=== PATIENT | male | born 1990 | race Caucasian/White ===

== ENCOUNTER → 2021-09-09 11:20 | Outpatient (CLI) | payer OTHER, SELFPAY ==
--- NOTE | ~2021-09-09 | CT_ITS ---
EXAMINATION: CT abdomen pelvis w con DATE: 09/09/2021 11:50 INDICATION: Right lower quadrant pain TECHNIQUE: Computed tomography (CT) of the abdomen and pelvis was performed with 100 cc Omnipaque 350 intravenous contrast. The dose-length product was 1161.39 mGy-cm. Automated exposure control and ite rative reconstruction technique were employed. COMPARISON: No prior studies for comparison. . FINDINGS: Lung bases are unremarkable. Heart size normal. 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 Fatty infiltration of the liver. The spleen, pancreas, adrenal glands and kidneys are unremarkable. No significant vascular abnormality. No lymphadenopathy. There is a thickened enhancing appendix measuring 1.3 cm transversely, consistent with acute appendi citis. No evidence for perforation or abscess. IMPRESSION: 1. Acute uncomplicated appendicitis. Reviewed, dictated and finalized at location B.
[2021-09-09 11:43] LABS: Estimated Glomerular Filt Rate > 60
== END ==
PROVIDERS: PCP Physician Assistant; Visit Provider Physician Assistant
DX: R10.31 Right lower quadrant pain (principal); K35.80 Unspecified acute appendicitis
CPT/HCPCS: 74177; Q9967

== ENCOUNTER 2021-09-10 13:46 | Day surgery (SDC) | payer OTHER, SELFPAY ==
[2021-09-10] VITALS (11 sets, daily range): BP systolic 118–144; BP diastolic 62–83; PULSE 65–86; RESP 10–116; TEMP 36.4; O2SAT 98–100
--- NOTE | 2021-09-10 13:50 | ED.ABDPAIN ---
HPI - Abdominal Pain General Chief Complaint: Abdominal Pain Stated Complaint: abdominal pain Time Seen by Provider: 09/10/21 13:50 Source: patient Limitations: no limitations History of Present Illness HPI narrative: patient 30 years old white male presents with abdominal pain, started around the umbilicus 3 days ago, later went to the right lower quadrant associated with nausea and vomiting. CAT scan of the abdomen and pelvis with IV contrast today showed acute uncommonly appendicitis. Patient referred to our emergency room by his family physician. History of hypertension on lisinopril, patient does not smoke, drinks occasionally, does not use drugs. Patient denies any fever or chills. Related Data Home Medications Medication Instructions Recorded Confirmed lisinopril 09/10/21 Allergies Allergy/AdvReac Type Severity Reaction Status Date / Time No Known Allergies Allergy Verified 09/10/21 14:11 Review of Systems Review of Systems: CONSTITUTIONAL: Denies fever, chills, or sweats. EYES: Denies visual changes, redness, or discharge. ENT: Denies rhinorrhea, congestion, sore throat, or otalgia. CARDIOVASCULAR: Denies chest pain, palpitations, or edema. RESPIRATORY: Denies cough or dyspnea. GASTROINTESTINAL: Denies abdominal pain, nausea, vomiting, or diarrhea. GENITOURINARY: Denies dysuria or hematuria. SKIN: Denies rash or itching. MUSCULOSKELETAL: Denies back pain, joint pain, or myalgia. NEUROLOGIC: Denies headache, numbness, or weakness. PSYCHIATRIC: Denies anxiety or depression. PMFSH Past Medical History Medical History (Updated 09/10/21 @ 17:16 by Jan Casas MD) HTN (hypertension) Overweight (BMI 25.0-29.9) Exam Narrative: General appearance: Well-developed, well-nourished Skin: Normal color Head: Normocephalic, nontraumatic Eyes: Clear conjunctiva ENT: Oropharynx normal, ears normal, nose normal Neck: Supple, nontender Chest and respiratory: Airway patent, no respiratory distress, no accessory muscle use Heart: Regular rate/rhythm Abdomen: Soft, moderate tenderness right lower quadrant, slight guarding, no rebound, no organomegaly, quiet bowel sounds Vascular: Normal peripheral pulses, normal capillary refill. Musculoskeletal: Normal range of motion, nontender back Neurologic: Alert and oriented ?3, SECOND HAND is normal as tested, no gross motor deficit Course Course Emergency Course: Stable Vital Signs Vital signs: Vital Signs Temperature 36.4 C 09/10/21 14:11 Pulse Rate 83 09/10/21 14:11 Respiratory Rate 16 09/10/21 14:11 Blood Pressure 136/82 09/10/21 14:11 Pulse Oximetry 98 09/10/21 14:11 Temperature 36.4 C 09/10/21 16:00 Pulse Rate 84 09/10/21 17:01 Respiratory Rate 16 09/10/21 17:01 Blood Pressure 124/70 09/10/21 17:01 Pulse Oximetry 98 09/10/21 16:00 MDM - Abdominal Pain Differential Diagnosis Differential diagnosis: Likely acute appendicitis Lab Data Result diagrams: 09/10/21 14:06 09/10/21 14:06 Labs: Lab Results 09/10/21 09/10/21 09/10/21 Range/Units 14:06 14:06 14:06 WBC 7.7 (4.5-10.0) K/mm3 RBC 5.57 (4.6-6.20) M/mm3 Hgb 16.8 (14.0-18.0) g/dL Hct 49.0 (42.0-52.0) % MCV 88.0 (80-100) fl MCH 30.2 (26-34) pg MCHC 34.3 (32-36) g/dl RDW 11.9 (11.5-14.5) % Plt Count 218 (150-375) k/mm3 MPV 9.5 (7.4-10.4) fl Immature Gran % (Auto) 0.1 (0-0.5) % Neut % (Auto) 53.8 (45.5-73.1) % Lymph % (Auto) 33.8 (18.3-44.2) % [place] % (Auto) 10.3 H (2.6-8.5) % Eos % (Auto) 1.6 (0-4.4) % Baso % (Auto) 0.4 (0.2-1.2) % Lymph # (Auto) 2.59 (0.9-3.2) K/mm3 Mon
[2021-09-10 14:18] LABS: Basophils Percent Auto 0.4 % (0.2-1.2); Eosinophils Absolute Auto 0.1 K/mm3 (0-0.3); Eosinophils Percent Auto 1.6 % (0-4.4); Hemoglobin 16.8 g/dL (14.0-18.0); Immature Granulocyte Absolute 0.01 K/mm3 (0.00-0.031); Immature Granulocyte Percent A 0.1 % (0-0.5); Lymphocytes Absolute Auto 2.59 K/mm3 (0.9-3.2); Lymphocytes Percent Auto 33.8 % (18.3-44.2); Mean Corpuscular HGB Conc 34.3 g/dl (32-36); Mean Corpuscular Hemoglobin 30.2 pg (26-34); Mean Platelet Volume 9.5 fl (7.4-10.4); Monocytes Absolute Auto 0.8 K/mm3 (0.1-0.6); Monocytes Percent Auto 10.3 % (2.6-8.5); Neutrophils Absolute Auto 4.1 K/mm3 (1.3-6.7); Neutrophils Percent Auto 53.8 % (45.5-73.1); Platelet Count Result 218 k/mm3 (150-375); Red Blood Count 5.57 M/mm3 (4.6-6.20); Red Cell Distribution Width 11.9 % (11.5-14.5); White Blood Count 7.7 K/mm3 (4.5-10.0)
[2021-09-10 14:20] LABS: Add Urine Microscopic? NO; Appearance Urine Clear (Clear); Bilirubin Urine Negative (Negative); Blood Urine Negative (Negative); Color Urine Yellow (Yellow); Glucose Urine UA Negative (Negative); Ketones Urine Negative (Negative); Leukocyte Esterase Ur Negative LEU/UL (Negative); Nitrate Urine Negative (Negative); Protein Urine Negative (Negative); Specific Grav Ur 1.025 (1.001-1.035); Urobilinogen Urine Negative mg/dL (<2.0)
[2021-09-10 14:30] LABS: Alanine Aminotransferase 35 U/L (4-50); Albumin Level 4.9 g/dL (3.5-5.1); Alkaline Phosphatase 63 U/L (38-126); Anion Gap 7 mmol/L (8-16); Aspartate Amino Transferase 29 U/L (17-59); Bilirubin,Total 1.3 mg/dL (0.2-1.3); Blood Urea Nitrogen 17 mg/dL (9-20); Calcium 9.6 mg/dL (8.4-10.2); Carbon Dioxide 26 mmol/L (22-30); Chloride 102 mmol/L (98-107); Estimated CRCL calculation 125 ml/min; Estimated Glomerular Filt Rate > 60; Glucose 107 mg/dL (65-110); Lipase 49 U/L (23-300); Potassium 4.2 mmol/L (3.4-5.0); Sodium 135 mmol/L (137-145)
[2021-09-10] MEDS: SODIUM CHLORIDE 0.9% IV 1,000 ML 999 ML IV CONT (14:49)
--- NOTE | 2021-09-10 17:12 | PM.IMHP ---
H&P: HPI History of Present Illness Date/Time: 09/10/21 17:12 Chief Complaint: Right lower quadrant abdominal pain Narrative: The patient is a 30 year old white male who presents with abdominal pain. It started around the umbilicus 3 days ago, and later went to the right lower quadrant associated with nausea and vomiting. Patient states that he saw his PCP, José Miguel Deras yesterday and a CT scan of the abdomen pelvis was ordered which was done yesterday at noon. This was read at [place] as acute uncomplicated appendicitis without signs of perforation. Today in the emergency room he had a workup including labs which show a normal white count and unremarkable electrolytes. Patient was referred to our emergency room by his family physician. Early in the day we had heard from the office that they were trying to refer him as an outpatient. However, one of our physicians reviewed the CT and since it showed acute uncomplicated appendicitis he recommended the patient come to the emergency room if you want care and not wait until the appropriate or available time which was next week. History of hypertension on lisinopril, patient does not smoke, drinks occasionally, does not use drugs. Patient denies any fever or chills actually is in not too much pain right now. Review of Systems Review of Systems: All systems reviewed & are unremarkable except as noted in HPI and below (HPI) Constitutional: Constitutional: Reports as per HPI, Denies chills and Denies fever(s) Eyes: Eyes: Reports no additional eye complaints ENT: Reports Normal hearing present and Denies dizziness Cardiovascular: Cardiovascular: Reports no additional cardiovascular complaints, Denies chest pain and Denies irregular heart rhythm Comments: History of hypertension on lisinopril. Respiratory: Respiratory: Reports no additional respiratory complaints Gastrointestinal: Gastrointestinal: Reports as per HPI, Denies constipation, Denies loose stools, Reports nausea and Reports vomiting (Several times yesterday) Genitourinary: Genitourinary: Denies hematuria Musculoskeletal: Musculoskeletal: Denies back pain Integumentary/Breasts: Skin/Breast: Reports system reviewed and no additional complaints, except as docu Neurologic: Reports Normal hearing present, Denies Abnormal speech present, Denies confusion and Denies dizziness Psychiatric: Psychiatric: Reports no additional psychiatric complaints and Denies confusion Endocrine: Endocrine: Reports no additional endocrine complaints Hematologic/Lymphatic: Hematologic/Lymphatic: Denies easy bleeding and Denies easy bruising Allergic/Immunologic: Allergic/Immunologic: Reports no additional allergic/immunologic complaints [facility] Past Medical History Medical History (Updated 09/10/21 @ 17:20 by Yaakov Rivera MD) HTN (hypertension) Overweight (BMI 25.0-29.9) Meds Home Medications and Allergies Home Medications Medication Instructions Recorded Confirmed Type hydrocodone-acetaminophen 1 tablet PO Q6H PRN #14 tablet 09/10/21 Rx lisinopril 09/10/21 History Allergies Allergy/AdvReac Type Severity Reaction Status Date / Time No Known Allergies Allergy Verified 09/10/21 14:11 Vital Signs Vital Signs - 24 hr 09/10/21 14:11 09/10/21 15:22 09/10/21 16:00 Temperature 36.4 C 36.4 C Pulse Rate 83 86 84 Respiratory Rate 16 16 116 H Blood Pressure 136/82 120/74 118/67 Pulse Oximetry 98 98 98 09/10/21 17:01 Temperature Pulse Rate 84 Respiratory Rate 16 Blood Pressure 124/70 Pulse Oximetry Exam Const: General: cooperative, healthy appearing, comfortable, no acute distress, well developed, alert and awake; No confusion Nutritional Appearance: overweight Orientation/consciousness: patient oriented x3 and No confusion HENMT: Head: normal to inspection Ears: hearing grossly normal bilaterally Mouth: Yes moist mucous membranes Teeth and gingiva: dentition normal Eyes: General: appearance
--- NOTE | 2021-09-10 17:14 | WPDANESEPPF ---
Anes - Initial Pre Proc Eval Procedure: Operation Date: 09/10/21 18:00 Proposed Procedures p Laparoscopic Appendectomy - Yaakov Rivera MD Date/Time: 09/10/21 17:14 Pre Op Diagnosis: abdominal pain Patient Data Age: 30 Gender: M Height: 1.91 m Weight: 104.54 kg Last Vital Signs Temp 36.4 C 09/10/21 16:00 Pulse 84 09/10/21 17:01 Resp 16 09/10/21 17:01 BP 124/70 09/10/21 17:01 Pulse Ox 98 09/10/21 16:00 Allergies Allergy/AdvReac Type Severity Reaction Status Date / Time No Known Allergies Allergy Verified 09/10/21 14:11 Home Medications Medication Instructions Recorded Confirmed Type lisinopril 09/10/21 History Laboratory Tests 09/10/21 09/10/21 09/10/21 14:06 14:06 14:06 WBC 7.7 K/mm3 K/mm3 (4.5-10.0) RBC 5.57 M/mm3 M/mm3 (4.6-6.20) Hgb 16.8 g/dL g/dL (14.0-18.0) Hct 49.0 % % (42.0-52.0) MCV 88.0 fl fl (80-100) MCH 30.2 pg pg (26-34) MCHC 34.3 g/dl g/dl (32-36) RDW 11.9 % % (11.5-14.5) Plt Count 218 k/mm3 k/mm3 (150-375) MPV 9.5 fl fl (7.4-10.4) Immature Gran % (Auto) 0.1 % % (0-0.5) Neut % (Auto) 53.8 % % (45.5-73.1) Lymph % (Auto) 33.8 % % (18.3-44.2) [place] % (Auto) 10.3 % H % (2.6-8.5) Eos % (Auto) 1.6 % % (0-4.4) Baso % (Auto) 0.4 % % (0.2-1.2) Lymph # (Auto) 2.59 K/mm3 K/mm3 (0.9-3.2) [place] # (Auto) 0.8 K/mm3 H K/mm3 (0.1-0.6) Eos # (Auto) 0.1 K/mm3 K/mm3 (0-0.3) Baso # (Auto) 0.0 K/mm3 K/mm3 (0.0-0.1) Abs Immat Gran (auto) 0.01 K/mm3 K/mm3 (0.00-0.031) Absolute Neuts (auto) 4.1 K/mm3 K/mm3 (1.3-6.7) Absolute Nucleated RBC 0.0 K/mm3 K/mm3 (0.0-0.012) Nucleated RBC % 0.0 % % (0.0-0.2) Sodium 135 mmol/L L mmol/L (137-145) Potassium 4.2 mmol/L mmol/L (3.4-5.0) Chloride 102 mmol/L mmol/L (98-107) Carbon Dioxide 26 mmol/L mmol/L (22-30) Anion Gap 7 mmol/L L mmol/L (8-16) BUN 17 mg/dL mg/dL (9-20) Creatinine 0.90 mg/dL mg/dL (0.7-1.3) Estim Creat Clear Calc 125 ml/min ml/min Estimated GFR > 60 (59 - ) Glucose 107 mg/dL mg/dL (65-110) Calcium 9.6 mg/dL mg/dL (8.4-10.2) Total Bilirubin 1.3 mg/dL mg/dL (0.2-1.3) AST 29 U/L U/L (17-59) ALT 35 U/L U/L (4-50) Alkaline Phosphatase 63 U/L U/L (38-126) Total Protein 8.0 g/dL g/dL (6.3-8.2) Albumin 4.9 g/dL g/dL (3.5-5.1) Lipase 49 U/L U/L (23-300) Urine Color Yellow (Yellow) Urine Appearance Clear (Clear) Urine pH 5.0 (5.0-9.0) Ur Specific [place] 1.025 (1.001-1.035) Urine Protein Negative mg/dL mg/dL (Negative) Urine Glucose (UA) Negative mg/dL mg/dL (Negative) Urine Ketones Negative mg/dL mg/dL (Negative) Ur Blood (Man) Negative (Negative) Urine Nitrate Negative (Negative) Urine Bilirubin Negative (Negative) Urine Urobilinogen Negative mg/dL mg/dL (<2.0) Leukocyte Esterase Rfl Negative NATHALY/UL NATHALY/UL (Negative) Patient hx anesthesia problems: none Family hx anesthesia problems: none Results Review: All pre-operative results and documents have been reviewed as part of the pre-operative evaluation. [facility] Past Medical History Medical History (Updated 09/10/21 @ 17:16 by Jan Casas MD) HTN (hypertension) Overweight (BMI 25.0-29.9) Anes - Eval Final PreProcedure Day of Procedure 09/10/21 17:14 Patient weight: overweight Heart: regular rate and rhythm Lungs: clear to auscultation and normal air movement Airway: Mallampati scale class II Neurological: alert and oriented
[2021-09-10] MEDS: LACTATED RINGERS 1,000 ML 30 ML IV CONT ×2 (17:24→18:50)
--- NOTE | 2021-09-10 17:51 | WPDHPUPDATE1 ---
History and Physical Update Update Date/Time: 09/10/21 17:51 History and Physical has been reviewed, including an updated exam of the patient. There are NO changes in the patient's condition. Risks, benefits, and alternatives have been discussed and questions answered. Patient agrees to proceed with procedure.
[2021-09-10] MEDS: BUPIVACAINE/EPINEPHRINE 0.25% 50 ML VIAL 30 ML INFILTRATE (18:39)
--- NOTE | 2021-09-10 18:49 | W.PM.PROC2 ---
Procedure Note - Detailed Date of Procedure 09/10/21 Pre-op Diagnosis Acute uncomplicated appendicitis Post-op Diagnosis Same (2. Small indirect right inguinal hernia) Procedure Performed laparoscopic appendectomy Surgeon Yaakov Rivera MD [employer] KIM. [employer] Anesthesia General Indications Patient is a 30-year-old white male who recently presented to his PCP with complaints of 1-2 days of lower abdominal pain. CT scan done as an outpatient revealed acute uncomplicated appendicitis. Patient continued to have symptoms and therefore presented to the emergency room today. After a thorough discussion of his options he wished to proceed with a laparoscopic appendectomy possible open. Findings Patient has somewhat dilated appendix which was adhesed to the posterior abdominal wall directly behind the ileum. There was no signs of perforation. Description of Procedure The patient was seen in the Emergency Room. The risks, benefits, complications, treatment options, and expected outcomes were discussed with the patient and his . The possibilities of reaction to medication, pulmonary aspiration, perforation of viscus, bleeding, recurrent infection, finding a normal appendix, the need for additional procedures, failure to diagnose a condition, and creating a complication requiring transfusion or operation were discussed. There was concurrence with the proposed plan and informed consent was obtained. The site of surgery was properly noted/marked. The patient was taken to Operating Room, and a time out was preformed which identified this as the proper patient, and the procedure verified as laparoscopic appendectomy, possible open. The patient was placed in the supine position and general anesthesia was induced, along with placement of an orogastric tube, SCD hose, and a Beaver catheter. The abdomen was prepped and draped in a sterile fashion. A 5 mm umbilical incision was made and the peritoneal cavity was accessed using the Veress needle technique. Once the abdomen was insufflated to 14 mmHg pressure a 5 mm XL trocar over the 0? 5 mm scope was carefully twisted into the abdomen via the umbilicus. The pneumoperitoneum was then established to steady pressure of 15 mm Hg. A 12 mm laparoscopic port was placed through a transverse suprapubic incision. An additional 5 mm cannula was then placed in in the left upper quadrant at the level residential between the left costal margin and the umbilicus under direct vision. A careful evaluation of the entire abdomen was carried out. We did note a very small opening to what appeared to be a asymptomatic indirect right inguinal hernia. (picture was taken of this for the patient). The patient was placed in Trendelenburg and left lateral decubitus position. The small intestines were retracted in the cephalad and left lateral direction away from the pelvis and right lower quadrant. The patient was found to have an enlarged and inflamed appendix that was extending [into the right side of the pelvis. There was no evidence of perforation. The appendix was carefully dissected. There were some filmy adhesions between the body of the appendix and the right posterior abdominal sidewall. These were taken down with scissors and Bovie cautery. There were some similar adhesions between the sidewall and the lateral wall of the cecum near the appendiceal base. By taking these down we were able to better rotate the appendix medially to remove it. Once it was free a 45 mm ethicon endogastroentestinal stapler with a vascular load was placed across the mesoappendix. This was fired and hemostasis was checked along the staple line and appeared to be adequate For this patient, this divided the entire mesoappendix and we were able to proceed immediately to stapling off the appendix at it's junction with the cecum. The appendix was then divided at its base using the same 45 mm stapler with a 3.5 mm bowel wall load. Minimal appe
[2021-09-10] MEDS: oxyCODONE HCL (*CRX) 5 MG TAB IR PO (19:49)
== END 2021-09-10 20:58 | disposition home or self-care (01) ==
LOC: ANHED 15:58 → ANHSURGERY 17:16
PROVIDERS: Emergency Provider Emergency Medicine; PCP Physician Assistant; Visit Provider Surgery
PROC: 0DTJ4ZZ Resection of Appendix, Percutaneous Endoscopic Approach (ICD-10-PCS; CPT 44970; principal; 2021-09-10 18:00)
DX: K35.30 Acute appendicitis with localized peritonitis, without perforation or gangrene (principal); I10 Essential (primary) hypertension
CPT/HCPCS: 44970; 36415; 80053; 81003; 83690; 85025; 88304; 96361; 96365; 99285; A9270; J1100; J2250; J2405; J2543; J2704; J3010; J7030; J7120